=== PATIENT | female | born 1995 | race Caucasian/White ===

== ENCOUNTER 2024-03-07 06:25 | Emergency (ER) | payer SELFPAY ==
[~2024-03-07] VITALS: Ht 165.1 cm; Wt 108.9 kg
[2024-03-07 06:30] VITALS: BP 123/78; PULSE 90; RESP 18; TEMP 98.3; O2SAT 98
[2024-03-07] MEDS: ONDANSETRON 4 MG ODT PO ONE (07:07)
[2024-03-07] MEDS: KETOROLAC 30 MG/ML VIAL IM ONE (07:09)
[2024-03-07 07:13] VITALS: O2SAT 98
[2024-03-07 07:43] LABS: APPEARANCE,URINE CLEAR (CLEAR); BILIRUBIN,URINE NEGATIVE (NEGATIVE); BLOOD, URINE NEGATIVE (NEGATIVE); COLOR,URINE YELLOW (YELLOW); LEUKOCYTE ESTERASE ,URINE NEGATIVE (NEGATIVE); NITRITE, URINE NEGATIVE (NEGATIVE); PROTEIN,URINE NEGATIVE (NEGATIVE); UGLUCOSE NEGATIVE (NEGATIVE); UROBILINOGEN,URINE 0.2 EU/dL (0.2 - 1)
[2024-03-07] MEDS ORDERED: ONDA-188 SL (07:58)
[2024-03-07 08:12] VITALS: BP 120/72; PULSE 83; RESP 14; TEMP 98.4; O2SAT 98
== END 2024-03-07 08:13 | disposition home or self-care (01) ==
LOC: MED 06:25
DX: R11.10 Vomiting, unspecified (principal); R10.30 Lower abdominal pain, unspecified; Z79.1 Long term (current) use of non-steroidal anti-inflammatories (NSAID)
CPT/HCPCS: 81003; 81025; 96372; 99283; J1885; Q0162